=== PATIENT | male | born 1935 | race Caucasian/White ===

== ENCOUNTER 2016-12-24 20:03 | Emergency (ER) | payer MEDICARE, OTHER ==
--- NOTE | 2016-12-24 20:35 | ERNOTE ---
Headache ER HPI - Narrative Date of Service: 12/24/16 - General Presenting Symptoms: headache, other - Periodic sharp stabbing pain on the left side of the head. Time Seen by Provider: 12/24/16 20:16 Source: patient Exam Limitations: no limitations - Immun/Allergies/Home Medications Immunizations: IMMUNIZATION HX Immunizations Up to Date Yes History of Influenza Vaccine Yes Hx Pneumococcal Vaccination Yes Allergies/Adverse Reactions: Allergies No Known Drug Allergies Allergy (Verified 12/24/16 20:16) Home Medications: HOME MEDICATIONS Acetaminophen/Diphenhydramine [Acetaminophen Pm Caplet] 2 each PO BID 12/24/16 [ Last Taken Unknown] Calcium Carb,Gluc/Mag Ox,Gluc [Calcium Magnesium Caplet] 1 each PO DAILY [Last Taken Unknown] Clopidogrel Bisulfate [Plavix] 75 mg PO DAILY 12/24/16 [Last Taken Unknown] Finasteride [Proscar] 5 mg PO DAILY 12/24/16 [Last Taken Unknown] Levothyroxine Sodium [Synthroid] 100 mcg PO DAILY 12/24/16 [Last Taken Unknown] Lisinopril 20 mg PO DAILY 12/24/16 [Last Taken Unknown] Lovastatin [Altoprev] 20 mg PO HS 12/24/16 [Last Taken Unknown] Melatonin 10 mg PO DAILY 12/24/16 [Last Taken Unknown] Nortriptyline HCl 50 mg PO DAILY 12/24/16 [Last Taken Unknown] Valerian Root 50 mg PO DAILY 12/24/16 [Last Taken Unknown] metFORMIN HCL [Glucophage] 1,000 mg PO BIDWM 12/24/16 [Last Taken Unknown] predniSONE [Prednisone] 20 mg PO DAILY 4 Days #6 tablet 12/24/16 [Last Taken Unknown] - Pain Pain Score: 7 - History of Present Illness Narrative: Patient states that during the day today he has had more frequent episodes of a sharp stabbing pain on the left side of the head. States they come approx every 4 minutes lasting 10-15 seconds. Does not have a constant headache. Denies any vision changes or unilateral weakness. Has had 2 strokes in 2001. Timing of Headache: still present, persistent Context Headache: Present: new onset Quality: Present: sharp, stabbing Severity Maximum: Present: severe Severity-Currently: Present: mild Headache frequency: Present: other - every 4 minutes lasting 10 seconds. Associated Symptoms: Reports: denies symptoms Review of Systems - Narrative Narrative: See HPI. Denies any trauma, vision changes, otalgia, neck or back pain. States he has a family history of cranial aneurysm and is afraid that is what is happening. - Review of Systems Constitutional: Present: no symptoms reported EYE: Present: no symptoms reported ENT: Present: no symptoms reported Respiratory: Present: no symptoms reported Cardiology: Present: no symptoms reported Gastrointestinal/Abdominal: Present: no symptoms reported Musculoskeletal: Present: no symptoms reported Skin: Present: no symptoms reported Neurological: Present: headache, other - Very transient lasting only seconds but interval is shortening. Endocrine: Present: no symptoms reported Hematologic/Lymphatic: Present: no symptoms reported Psych: Present: no symptoms reported - Patient's Past Medical History Patient History - Medical: Diabetes Type 2, Hypothyroidism Patient History - Cardiac/Respiratory: CVA/Stroke, Hypertension, Hyperlipidemia Patient History - Cancer: Skin Patient History - Surgical Procedures: Cancer Surgery, Coronary Bypass Surgery Patient History - Other: None - Social History Living Situations: home Abuse History: No History of abuse Psych History: No pertinent hx Smoking Status: Never smoker Alcohol Use: none Drug Use: none - Immunizations Immunizations Up to Date: Yes Hx Pneumococcal Vaccination: Yes History of Influenza Vaccine: Yes Physical Exam - Physical Exam General Appearance: Present: wd/wn, alert, no apparent distress Head Exam: Present: normal inspection, no evidence of injury, no tenderness w palpation Eye Exam: Normal inspection: bilateral, PERRL: bilateral, EOMI: bilateral Ears, Nose, Throat: Present: normal ENT inspection, normal pharynx Neck: Present: normal inspection, nontender, supple, full range of motion Respiratory: Present: no respiratory distress, normal breath sounds, no accessory muscle use, chest nontender, lungs clear Cardiovascular/Chest: Present: regular rate, rhythm, no murmur, normal peripheral pulses, extra beats Peripheral Pulses: N=norm/S=strong/W=weak/B=bound/A=absent: Radial (R): Normal, Radial (L): Normal Gastrointestinal/Abdominal: Present: normal bowel sounds, nontender, nondistended, soft Extremity Exam: Present: normal range of motion, no edema Neurological Exam: Present: alert, oriented, normal mood/affect, no motor/ sensory deficits, 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 No ptosis. Skin Exam: Present: normal color, warm/dry ED Progress - Results and Orders Patient's Lab Results:: I have reviewed the patient's lab results. - Vital Signs Patient's Vital Signs:: I have reviewed the patient's vital signs. Vital Signs: Vital Signs 12/24/16 20:08 Temperature 36.3 C L Respiratory 18 Rate Blood Pressure 191/93 O2 Sat by Pulse 97 Oximetry - CT/Ultrasound CT/Ultrasound Narrative: Have reviewed head CT with no acute findings. Radiologist no acute findings. - Progress/Reassessment Chief Complaint: Headache Progress:: Improved - However continues with some sharp pains but are not as frequent. - Transfer of Care Expected Disposition: Discharge Departure Clinical Impression: Headache Qualifiers: Headache type: primary stabbing headache Qualified Code(s): G44.85 - Primary stabbing headache - Departure Disposition: Home Follow Up Needed Condition: Good Additional Instructions: You have signs of inflammation along with the sharp periodic headache. The two may be related so we will treat with a short course of prednisone. Drink lots of fluids and use tylenol 650mg every 4 hrs with food. Follow up with family provider in 2-3 days to discuss your symptoms as well as signs of inflammation. Your blood sugars will go up so be prepared to treat as needed. You may also take benadryl 50mg oral before bed to assist with sleep. If you worsen let us know. Referrals: David Turpin DO [Primary Care Provider] - Prescriptions: predniSONE [Prednisone] 20 mg PO DAILY 4 Days #6 tablet
[2016-12-24 20:45] LABS: Hematocrit 35.5 % (42.0-52.0); Hemoglobin 11.8 gm/dL (13.5-18.0); Mean Cell Volume 95.9 fl (78-100); Mean Corpuscular Hemoglobin 31.9 pg (27-31); Mean Corpuscular Hgb Conc 33.2 g/dl (32-36); Mean Platelet Volume 10.3 fl (6.0-9.5); Neutrophil # 4.2 K/mm3 (1.3-6.0); Neutrophil % 53.7 % (42-75.0); Platelet Count 192 K/mm3 (150-450); Red Cell Distribution Width 14.1 % (11.5-14.0); White Blood Count 7.9 K/mm3 (4.0-10.5)
[2016-12-24 20:58] LABS: Anion Gap 8.9 mmol/L (6.8-13.8); BUN/Creatinine Ratio 37.5 (9.0-21.6); Bilirubin, Total 0.3 mg/dL (0.0-1.1); Ca. Corrected For Albumin 9.3 mg/dL (8.4-10.2); Calcium * 9.6 mg/dL (7.9-10.9); Carbon Dioxide 33.6 mmol/L (24-32.6); Potassium 4.5 mmol/L (3.4-4.6); Total Protein 7.6 gm/dL (6.2-8.2)
[2016-12-24] MEDS ORDERED: predniSONE 20 MG TABLET PO ONE (21:40)
[2016-12-24] MEDS ORDERED: diphenhydrAMINE HCL 50 MG CAPSULE PO ONE ×2 (21:40→21:50)
[2016-12-24] MEDS ORDERED: ACETAMINOPHEN 325 MG TABLET PO ONE (21:47)
[2016-12-24] MEDS ORDERED: predniSONE 20 MG TABLET ONE (21:50)
[2016-12-24] MEDS ORDERED: ACETAMINOPHEN 325 MG TABLET ONE (21:52)
[2016-12-24 22:51] VITALS: BP 159/75
== END 2016-12-24 22:00 | disposition home or self-care (01) ==
LOC: ER 20:03
DX: G44.85 Primary stabbing headache (principal); E03.9 Hypothyroidism, unspecified; E78.5 Hyperlipidemia, unspecified; E11.9 Type 2 diabetes mellitus without complications; Z85.828 Personal history of other malignant neoplasm of skin; I63.9 Cerebral infarction, unspecified